=== PATIENT | male | born 1940 | race Caucasian/White ===

== ENCOUNTER 2020-09-02 11:02 | Emergency (ER) | payer MEDICARE ==
[~2020-09-02 11:02] MED LIST: ECOTRIN81 MG PO; GLUCOPHAGE1000 MG PO; OMEGA 3 FISH O1 EACH PO; ZESTRIL2.5 MG PO
[2020-09-02 12:43] LABS: HEMOGLOBIN 13.5 gm/dl (14.0-17.5); RED BLOOD COUNT 4.43 M/UL (4.20-5.50); WHITE BLOOD COUNT 8.9 K/UL (4.5-11.0)
[2020-09-02 13:02] LABS: BUN/CREATININE RATIO 23 (0-10)
[2020-09-14] MEDS ORDERED: AUGMENTIN 875-1 EACH PO (07:22)
[2020-09-14] MEDS ORDERED: DICYCLOMINE HCL20 MG PO (07:25)
[2020-09-14] MEDS ORDERED: LIPITOR40 MG PO (07:25)
[2020-09-14] MEDS ORDERED: COREG3.125 MG PO (07:25)
[2020-09-14] MEDS ORDERED: VITAMIN B-121000 MC1 PO (07:26)
[2020-09-14] MEDS ORDERED: FLOMAX0.4 MG PO (07:26)
== END 2020-09-02 17:10 | disposition home or self-care (01) ==
LOC: ER1 11:02
PROVIDERS: Emergency Medicine
DX: R07.89 Other chest pain (principal); E11.9 Type 2 diabetes mellitus without complications; E78.5 Hyperlipidemia, unspecified; K21.9 Gastro-esophageal reflux disease without esophagitis; Z90.89 Acquired absence of other organs
CPT/HCPCS: 71045; 80053; 82550; 82553; 83874; 83880; 84484; 85025; 93005; 99285

== ENCOUNTER 2020-09-04 12:43 | Emergency (ER) | payer MEDICARE ==
[2020-09-04 15:13] LABS: HEMOGLOBIN 13.1 gm/dl (14.0-17.5); RED BLOOD COUNT 4.26 M/UL (4.20-5.50); WHITE BLOOD COUNT 9.4 K/UL (4.5-11.0)
[2020-09-04] MEDS ORDERED: ZOFRAN4 MG PO (17:28)
[2020-09-04] MEDS ORDERED: BENTYL 20MG TAB20 MG PO (17:28)
[2020-09-14] MEDS ORDERED: AUGMENTIN 875-1 EACH PO (07:22)
[2020-09-14] MEDS ORDERED: LIPITOR40 MG PO (07:25)
[2020-09-14] MEDS ORDERED: COREG3.125 MG PO (07:25)
[2020-09-14] MEDS ORDERED: DICYCLOMINE HCL20 MG PO (07:25)
[2020-09-14] MEDS ORDERED: FLOMAX0.4 MG PO (07:26)
[2020-09-14] MEDS ORDERED: VITAMIN B-121000 MC1 PO (07:26)
== END 2020-09-04 17:38 | disposition home or self-care (01) ==
LOC: ER1 12:43
PROVIDERS: Physician Assistant Medical
DX: R10.9 Unspecified abdominal pain (principal); R50.9 Fever, unspecified; R11.10 Vomiting, unspecified; E11.9 Type 2 diabetes mellitus without complications; E78.5 Hyperlipidemia, unspecified; Z95.1 Presence of aortocoronary bypass graft
CPT/HCPCS: 74018; 80053; 83690; 85025; 99284; Q9967

== ENCOUNTER → 2020-09-14 | Day surgery (SDC) | payer MEDICARE ==
[~2020-09-14] MED LIST changes: +AUGMENTIN 875-1 EACH PO; +BENTYL 20MG TAB20 MG PO; +COREG3.125 MG PO; +DICYCLOMINE HCL20 MG PO; +FLOMAX0.4 MG PO; +LIPITOR40 MG PO; +VITAMIN B-121000 MC1 PO; +ZOFRAN4 MG PO
== END | disposition home or self-care (01) ==
LOC: OR 06:42
DX: K22.10 Ulcer of esophagus without bleeding (principal); K44.9 Diaphragmatic hernia without obstruction or gangrene; K80.00 Calculus of gallbladder with acute cholecystitis without obstruction; R07.89 Other chest pain; I25.10 Atherosclerotic heart disease of native coronary artery without angina pectoris; E78.5 Hyperlipidemia, unspecified; E11.9 Type 2 diabetes mellitus without complications; Z95.1 Presence of aortocoronary bypass graft; Z79.84 Long term (current) use of oral hypoglycemic drugs; Z87.891 Personal history of nicotine dependence; I10 Essential (primary) hypertension
CPT/HCPCS: 82962; J2704; J7030